=== PATIENT | male | born 1980 | race Two or more races ===

== ENCOUNTER 2019-07-03 15:14 | Emergency (ER) | payer OTHER ==
[~2019-07-03] VITALS: Ht 170.2 cm; Wt 77.1 kg
--- NOTE | 2019-07-03 15:21 | NUR ---
AT BEDSIDE FOR EVAL.
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
--- NOTE | 2019-07-03 15:35 | NUR ---
PT IS WHEELED TO CT SCAN VIA [facility].
--- NOTE | 2019-07-03 16:40 | NUR ---
CALLED [facility] STATES NOT TAKING TRANFER REQUESTS, NO ETA FOR WHEN AVAILABILITY WILL RETURN
--- NOTE | 2019-07-03 17:09 | NUR ---
Patient does not wish to proceed with medical care recommended by Dr. Santos. Patient given information related to possible complications, up to and including , which could occur as a result of leaving the hospital at this time. Patient verbalizes understanding of risks involved due to leaving against medical advice. Patient has signed AMA form.
[2019-07-03 17:11] VITALS: BP 133/82
== END 2019-07-03 17:28 | disposition left against medical advice (07) ==
LOC: ER 15:16
DX: S02.841A Fracture of lateral orbital wall, right side, initial encounter for closed fracture (principal); S02.40EA Zygomatic fracture, right side, initial encounter for closed fracture; W18.39XA Other fall on same level, initial encounter; Y93.89 Activity, other specified; Y92.89 Other specified places as the place of occurrence of the external cause; Y99.8 Other external cause status
CPT/HCPCS: 70450-TC; 70486-TC; 72125-TC